=== PATIENT | female | born 1960 | race Caucasian/White ===

== ENCOUNTER 2021-10-08 09:19 | Outpatient (CLI) | payer MEDICAID, SELFPAY ==
--- NOTE | 2021-10-08 10:48 | W.ANESCHARGE ---
Anesthesia Charges Start Date/Time Anesthesia Start Date: 10/08/21 Anesthesia Start Time: 10:10 Stop Date/Time Anesthesia Stop Date: 10/08/21 Anesthesia Stop Time: 10:43 Summary Emergency: No
--- NOTE | 2021-10-08 11:52 | W.ANESCHARGE ---
Anesthesia Charges Start Date/Time Anesthesia Start Date: 10/08/21 Anesthesia Start Time: 10:10 Stop Date/Time Anesthesia Stop Date: 10/08/21 Anesthesia Stop Time: 10:43 Summary Emergency: No
== END 2021-10-08 09:20 | disposition home or self-care (01) ==
PROVIDERS: PCP Nurse Practitioner Family; Visit Provider Internal Medicine Gastroenterology
DX: Z12.11 Encounter for screening for malignant neoplasm of colon (principal); K63.5 Polyp of colon; Z86.010 Personal history of colon polyps; R10.13 Epigastric pain; K21.9 Gastro-esophageal reflux disease without esophagitis
CPT/HCPCS: 43239; 45385; 811; 813; 88305; J2704; J3490